=== PATIENT | male | born 1985 | race African-American/Black ===

== ENCOUNTER 2019-06-16 09:53 | Inpatient (IN) | payer OTHER ==
[~2019-06-16] VITALS: Ht 177.8 cm; Wt 74.8 kg
[2019-06-16 09:55] VITALS: BP 110/69
[2019-06-16 10:20] LABS: HEMOGLOBIN 14.7 gm/dL (14.0-18.0); MCH 28.2 pg (26.0-34.0); MCV 88.1 fL (80.0-100.0); RBC 5.22 mil/uL (4.50-6.00); RDW 14.7 % (10.5-14.5)
[2019-06-16 10:37] LABS: CREATININE 1.1 mg/dL (0.7-1.3); POTASSIUM 4.2 mmol/L (3.5-5.1)
[2019-06-16 10:47] LABS: CALCIUM 10.1 mg/dL (8.5-10.1)
[2019-06-16 11:15] LABS: URINE BILIRUBIN NEGATIVE (Negative); URINE BLOOD TRACE (Negative); URINE CLARITY CLEAR; URINE COLOR YELLOW; URINE GLUCOSE-RANDOM* 3+ (Negative); URINE KETONES 1+ (Negative); URINE LEUKOCYTES-REFLEX NEGATIVE (Negative); URINE NITRITE-REFLEX NEGATIVE (Negative); URINE PROTEIN (DIPSTICK) TRACE (Negative); URINE SPECIFIC GRAVITY 1.015 (1.005-1.035); URINE UROBILINOGEN 0.2 E.U./dl (0.2-1.0)
[2019-06-16 11:42] LABS: BE(vivo) -8.4 mmol/L (-2 to +3); HCO3 18.7 mmol/L (22.0-26.0); PCO2 VENOUS 44.5 mmHg (41.0-51.0); PO2 VENOUS 30.4 mmHg (35.0-45.0)
[2019-06-16 12:42] VITALS: BP 118/72
--- NOTE | 2019-06-16 12:50 | NUR ---
JARAD [id number]
[2019-06-16 12:59] VITALS: BP 108/84
[2019-06-16 15:20] VITALS: BP 128/58
--- NOTE | 2019-06-16 18:41 | NUR ---
33 YO MALE ADMITTED BY CART FROM ER. A&OX4. UP AD LISA IN ROOM. IV INTACT INTACT IN L AC. PT HAS BEEN CALM AND PLEASANT SINCE ARRIVING ON THE UNIT TODAY APPROX. AT 1300. ORIENTED TO ROOM/CALL LIGHT. WILL CONT POC.
[2019-06-16 19:12] VITALS: BP 109/63
[2019-06-16 23:27] VITALS: BP 102/49
[2019-06-17 03:46] VITALS: BP 103/69
--- NOTE | 2019-06-17 03:55 | NUR ---
PATIENT IS PROGRESSING RAPIDLY IN HIS CARE PLAN. VITAL SIGNS STABLE WITH PATIENT HAVING NO COMPLAINTS OF NAUSEA. PATIENT DID COMPLAIN ONCE OF FACIAL PAIN WHICH WAS TREATED EFFECTIVELY THROUGH TYLENOL. UP AD LISA THROUGHOUT SHIFT, PATIENT IS STRONG AND BALANCED WHEN AMBULATING. BLOOD SUGARS IN 200'S WITH INSULIN GIVEN PER SLIDING SCALE. NO OTHER COMPLAINTS AT THIS TIME. POSSIBLE DISCHARGE SOON. CONTINUE PLAN OF CARE.
[2019-06-17 05:33] LABS: HEMATOCRIT 35.1 % (42.0-52.0); MCHC 32.2 g/dL (28.0-37.0); RBC 4.03 mil/uL (4.50-6.00); RDW 14.6 % (10.5-14.5); WBC 6.3 thou/uL (4.0-11.0)
[2019-06-17 05:40] LABS: HEMOGLOBIN 11.3 gm/dL (14.0-18.0)
[2019-06-17 05:45] LABS: CALCIUM 8.7 mg/dL (8.5-10.1); CREATININE 0.8 mg/dL (0.7-1.3); POTASSIUM 4.4 mmol/L (3.5-5.1)
[2019-06-17 07:01] VITALS: BP 111/70
[2019-06-17] MEDS ORDERED: HUMALOG100 UNIT/1 SUBQ (10:12)
[2019-06-17] MEDS ORDERED: LEVEMIR FL100 UNIT/2 SUBQ (10:12)
[2019-06-17 13:40] VITALS: BP 111/70
--- NOTE | 2019-06-17 19:30 | NUR ---
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
== END 2019-06-17 15:10 | disposition home or self-care (01) | DRG 638 ==
LOC: ER 09:53 → EROBS 12:06 → 3W 13:03
PROVIDERS: Emergency Medicine; ADMIT Hospitalist
DX: E11.8 Type 2 diabetes mellitus with unspecified complications (principal); E87.2 Acidosis; E86.0 Dehydration; Z79.899 Other long term (current) drug therapy; Z28.21 Immunization not carried out because of patient refusal
CPT/HCPCS: 10779